=== PATIENT | female | born 1990 | race Two or more races ===

== ENCOUNTER 2018-10-28 11:29 | Inpatient (IN) | payer OTHER ==
[~2018-10-28] VITALS: Ht 160 cm; Wt 1.4 kg
[2018-10-28] MEDS ORDERED: SYNTHROID50 MCG PO (12:15)
[2018-10-28] MEDS ORDERED: PRENATAL TABLE1 EAC1 PO (12:16)
[2018-11-01] MEDS ORDERED: GAS RELIEF125 MG PO (13:32)
[2018-11-01] MEDS ORDERED: PREPLUS CA-FE1 EACH PO (13:32)
[2018-11-01] MEDS ORDERED: IBUPROFEN400 MG PO (13:32)
== END 2018-11-01 14:43 | disposition home or self-care (01) | DRG 787 ==
LOC: LDR 11:29 → O/R 10-29 14:07 → OB/GYN 10-29 15:12
PROVIDERS: ADMIT Obstetrics & Gynecology
PROC: 3E0P7VZ Introduction of Hormone into Female Reproductive, Via Natural or Artificial Opening (ICD-10-PCS; 2018-10-28)
PROC: 4A1HXCZ Monitoring of Products of Conception, Cardiac Rate, External Approach (ICD-10-PCS; 2018-10-28)
PROC: 3E033VJ Introduction of Other Hormone into Peripheral Vein, Percutaneous Approach (ICD-10-PCS; 2018-10-29)
PROC: 10D00Z1 Extraction of Products of Conception, Low, Open Approach (ICD-10-PCS; principal; 2018-10-29 14:00)
DX: O82 Encounter for cesarean delivery without indication (principal); O41.03X0 Oligohydramnios, third trimester, not applicable or unspecified; Z3A.37 37 weeks gestation of pregnancy; Z37.0 Single live birth; Z22.330 Carrier of Group B streptococcus

== ENCOUNTER 2020-03-14 13:00 | Inpatient (IN) | payer OTHER ==
[~2020-03-14] VITALS: Ht 160 cm; Wt 78.9 kg
[~2020-03-14 13:00] MED LIST: GAS RELIEF125 MG PO; IBUPROFEN400 MG PO; PRENATAL TABLE1 EAC1 PO; PREPLUS CA-FE1 EACH PO; SYNTHROID50 MCG PO
[2020-03-22] MEDS ORDERED: PRENATAL + DHA1 EAC1 PO (08:56)
== END 2020-03-23 12:37 | disposition home or self-care (01) | DRG 788 ==
LOC: OB/GYN 03-21 05:00 → O/R 03-21 05:00 → LDR 03-21 08:30 → OB/GYN 03-21 13:40
PROVIDERS: ADMIT Obstetrics & Gynecology; ATTEND Obstetrics & Gynecology
PROC: 4A1HXCZ Monitoring of Products of Conception, Cardiac Rate, External Approach (ICD-10-PCS; 2020-03-21)
PROC: 10D00Z1 Extraction of Products of Conception, Low, Open Approach (ICD-10-PCS; principal; 2020-03-21 08:30)
DX: O82 Encounter for cesarean delivery without indication (principal); Z3A.38 38 weeks gestation of pregnancy; Z37.0 Single live birth